=== PATIENT | male | born 1965 | race Caucasian/White ===

== ENCOUNTER 2017-08-14 06:36 | Outpatient (CLI) | payer OTHER ==
[~2017-08-14 06:36] MED LIST: LEVSIN/SL0.125 MG PO; PROTONIX40 MG PO
== END 2017-08-14 07:11 | disposition home or self-care (01) ==
LOC: LAB 06:36
DX: N30.00 Acute cystitis without hematuria (principal); N42.9 Disorder of prostate, unspecified

== ENCOUNTER 2017-08-16 14:19 | Outpatient (CLI) | payer OTHER | END 2017-08-16 14:30 | disposition home or self-care (01) | LOC: LAB 14:19 | DX: N34.2 Other urethritis (principal) ==

== ENCOUNTER 2018-08-19 06:56 | Outpatient (CLI) | payer OTHER | END 2018-08-19 15:50 | disposition home or self-care (01) | LOC: LAB 06:56 | DX: E29.1 Testicular hypofunction (principal); N52.8 Other male erectile dysfunction ==

== ENCOUNTER 2019-10-30 07:38 | Outpatient (CLI) | payer OTHER | END 2019-10-30 08:07 | disposition home or self-care (01) | LOC: LAB 07:38 | PROVIDERS: ATTEND Surgery | DX: N40.0 Benign prostatic hyperplasia without lower urinary tract symptoms (principal); K59.09 Other constipation; N34.2 Other urethritis ==

== ENCOUNTER 2019-11-09 07:13 | Outpatient (CLI) | payer OTHER | END 2019-11-09 09:08 | disposition home or self-care (01) | LOC: LAB 07:13 | PROVIDERS: ATTEND Internal Medicine | DX: Z00.8 Encounter for other general examination (principal); Z11.4 Encounter for screening for human immunodeficiency virus [HIV] ==

== ENCOUNTER → 2020-08-15 07:55 | Outpatient (CLI) | payer OTHER | END | disposition home or self-care (01) | LOC: LAB 07:55 | PROVIDERS: ATTEND Surgery | DX: R68.82 Decreased libido (principal) ==

== ENCOUNTER 2021-03-02 15:18 | Outpatient (CLI) | payer OTHER | END 2021-03-02 15:26 | disposition home or self-care (01) | LOC: LAB 15:18 | PROVIDERS: ATTEND Surgery | DX: N34.1 Nonspecific urethritis (principal) ==

== ENCOUNTER 2021-05-17 10:53 | Outpatient (CLI) | payer OTHER | END 2021-05-17 10:54 | disposition home or self-care (01) | LOC: LAB 10:53 | PROVIDERS: ATTEND General Practice | DX: N39.0 Urinary tract infection, site not specified (principal); Z00.00 Encounter for general adult medical examination without abnormal findings; E55.9 Vitamin D deficiency, unspecified; Z13.29 Encounter for screening for other suspected endocrine disorder; E78.5 Hyperlipidemia, unspecified; Z12.5 Encounter for screening for malignant neoplasm of prostate ==

== ENCOUNTER 2022-03-22 07:28 | Outpatient (CLI) | payer OTHER | END 2022-03-22 07:29 | disposition home or self-care (01) | LOC: LAB 07:28 | PROVIDERS: ATTEND Internal Medicine Infectious Disease | DX: D64.9 Anemia, unspecified (principal); R79.9 Abnormal finding of blood chemistry, unspecified; N39.0 Urinary tract infection, site not specified; M81.0 Age-related osteoporosis without current pathological fracture ==

== ENCOUNTER 2022-09-17 07:11 | Outpatient (CLI) | payer OTHER | END 2022-09-17 07:27 | disposition home or self-care (01) | LOC: LAB 07:11 | PROVIDERS: ATTEND Internal Medicine Infectious Disease | DX: B20 Human immunodeficiency virus [HIV] disease (principal) ==

== ENCOUNTER → 2023-02-19 07:43 | Outpatient (CLI) | payer OTHER ==
[2023-02-19 08:32] LABS: HEMATOCRIT 41.2 % (39.0-48.0); HEMOGLOBIN 14.1 g/dL (13-16.00); MEAN CELL VOLUME 93.8 fL (80.0-100.00); MEAN CORPUSCULAR HEMOGLOBIN 32.1 pg (27.00-32.0); MEAN CORPUSCULAR HGB CONC 34.2 g/dl (32.0-36.0); PLATELET COUNT 218 K/uL (150-450); RED BLOOD COUNT 4.39 M/uL (4.00-6.00); RED CELL DISTRIBUTION WIDTH 12.8 % (11.5-14.5)
[2023-02-19 09:11] LABS: PH,URINE 5.5 (5.0-8.0); URINE APPEARANCE Clear; URINE BILIRRUBIN Negative (NEGATIVE); URINE BLOOD Negative; URINE COLOR Yellow; URINE GLUCOSE Negative (NEGATIVE); URINE LEUKOCYTE Negative; URINE NITRATE Negative; URINE PROTEIN Negative (NEGATIVE); URINE UROBILINOGEN 0.2 E.U./dl
[2023-02-19 09:17] LABS: ALBUMIN 3.8 gm/dL (3.4-5.0); BILIRUBIN TOTAL 0.51 mg/dL (0.3-1.2); CALCIUM 8.8 mg/dL (8.5-10.1); CHOL HDL RATIO 2.6 (0-5.0); CREATININE SERUM 0.97 mg/dL (0.70-1.30); GFR 80.06; GLOBULINA 2.6 G/DL (2.4-3.5); POTASSIUM 4.4 mEq/L (3.5-5.1); TOTAL PROTEIN 6.4 gm/dL (6.4-8.2)
[2023-02-19 09:38] LABS: URINE BACTERIA 1.2 uL (0.0-1933); URINE EPITHELIAL CELLS 0.1 uL (0.0-38.8); URINE RBC 0.2 uL (0.0-20.8); URINE WBC 0 uL (0.0-23.2)
== END | disposition home or self-care (01) ==
LOC: LAB 07:43
PROVIDERS: ATTEND Internal Medicine Infectious Disease
DX: B20 Human immunodeficiency virus [HIV] disease (principal)

== ENCOUNTER 2023-02-25 07:20 | Outpatient (CLI) | payer OTHER ==
[2023-02-25 08:58] LABS: ALBUMIN 3.6 gm/dL (3.4-5.0); BILIRUBIN TOTAL 0.42 mg/dL (0.3-1.2); CALCIUM 8.9 mg/dL (8.5-10.1); CREATININE SERUM 0.95 mg/dL (0.70-1.30); GFR 82.01; GLOBULINA 2.7 G/DL (2.4-3.5); POTASSIUM 4.04 mEq/L (3.5-5.1); TOTAL PROTEIN 6.3 gm/dL (6.4-8.2)
== END 2023-02-25 07:21 | disposition home or self-care (01) ==
LOC: LAB 07:20
PROVIDERS: ATTEND Surgery
DX: N28.9 Disorder of kidney and ureter, unspecified (principal)

== ENCOUNTER 2024-09-16 10:34 | Outpatient (CLI) | payer OTHER ==
[2024-09-16 11:11] LABS: PH,URINE 7.5 (5.0-8.0); URINE APPEARANCE Clear; URINE BILIRRUBIN Negative (NEGATIVE); URINE BLOOD Negative; URINE COLOR Yellow; URINE GLUCOSE Negative (NEGATIVE); URINE KETONE Negative (NEGATIVE); URINE LEUKOCYTE Negative; URINE NITRATE Negative; URINE PROTEIN Negative (NEGATIVE); URINE UROBILINOGEN 0.2 E.U./dl
[2024-09-16 11:17] LABS: URINE BACTERIA 3.6 uL (0.0-1933); URINE RBC 0.4 uL (0.0-20.8); URINE WBC 0.4 uL (0.0-23.2)
[2024-09-16 12:16] LABS: PROSTATIC SPECIFIC ANTIGEN 1.19 NG/ML (0.010-4.00)
== END 2024-09-16 10:38 | disposition home or self-care (01) ==
LOC: LAB 10:34
PROVIDERS: ATTEND Internal Medicine
DX: R73.02 Impaired glucose tolerance (oral) (principal); E55.9 Vitamin D deficiency, unspecified; N40.1 Benign prostatic hyperplasia with lower urinary tract symptoms; E16.2 Hypoglycemia, unspecified

== ENCOUNTER → 2024-11-24 09:48 | Outpatient (CLI) | payer OTHER ==
[2024-11-24 10:44] LABS: BASO % 0.5 % (0.1-1.2); EOS # 0.17 (0.04-0.54); EOS % 3.0 % (0.7-7.0); LYMPH # 2.12 (1.18-3.74); LYMPH % 37.3 % (19.3-53.1); MEAN PLATELET VOLUME 9.30 fl (9.4-12.4); MONO # 0.47 (0.24-0.82); MONO % 8.3 % (4.7-12.5); NEUT # 2.88 (1.56-6.13); NEUT % 50.7 % (34.0-71.1); RED CELL DISTRIBUTION WIDTH 11.8 % (11.6-14.4)
[2024-11-24 11:28] LABS: ALT/SGPT 40 U/L (12-78); AST/SGOT 24 U/L (15-37); BILIRUBIN TOTAL 0.67 mg/dL (0.3-1.2); BILIRUBIN,CONJUGATED 0.15 mg/dL (0.0-0.2); FREE TRIODOTIRONINE 2.37 pg/ml (2.18-3.98); T4 FREE 0.95 NG/ML (0.76-1.46); TSH 1.160 uIU/mL (0.358-3.74)
== END | disposition home or self-care (01) ==
LOC: LAB 09:48
DX: M32.0 Drug-induced systemic lupus erythematosus (principal); E03.9 Hypothyroidism, unspecified; R94.5 Abnormal results of liver function studies; I10 Essential (primary) hypertension